=== PATIENT | female | born 1945 | race Caucasian/White ===

== ENCOUNTER 2024-07-03 08:33 | Observation (INO) ==
--- NOTE | 2024-05-30 11:37 | PAT Medication Instructions ---
Medication Instructions Date of Service May 30, 2024 Home Medications acetaminophen 500 mg tablet 500 mg PO Q6H PRN Pain ascorbic acid (vitamin C) 1,000 mg tablet (Vitamin C) 1 g PO DAILY calcium 600 mg capsule 600 mg PO DAILY cholecalciferol (vitamin D3) 125 mcg (5,000 unit) tablet (Vitamin D3) 125 mcg PO DAILY lactobacillus combination no.4 3 billion cell capsule (Probiotic) 3,000 mmu cells PO DAILY levothyroxine 25 mcg tablet 25 mcg PO QAM bxistibh-ohw-fgonn ac 400 mcg-calcium carb 500 mg-vit K1 20 mcg tablet (Women's 50 Plus Multivitamin) 1 tab PO DAILY omega-3 fatty acids-vitamin E 1,000 mg capsule 1 cap PO DAILY potassium 99 mg tablet 99 mg PO UD vitamin B complex 1 tab PO DAILY ibuprofen 400 mg tablet 600 mg PO BID magnesium 1 tab PO DAILY polyethylene glycol 3350 17 gram/dose oral powder (Miralax) 17 g PO DAILY prednisolone sodium phosphate 1 % eye drops 1 drp ophthalmic (eye) QAM ASK your surgeon for instructions ibuprofen 400 mg tablet 600 mg PO BID STOP taking 2 weeks before surgery (or as soon as possible if surgery is within 2 weeks) omega-3 fatty acids-vitamin E 1,000 mg capsule 1 cap PO DAILY DO NOT take the morning of surgery ascorbic acid (vitamin C) 1,000 mg tablet (Vitamin C) 1 g PO DAILY calcium 600 mg capsule 600 mg PO DAILY cholecalciferol (vitamin D3) 125 mcg (5,000 unit) tablet (Vitamin D3) 125 mcg PO DAILY lactobacillus combination no.4 3 billion cell capsule (Probiotic) 3,000 mmu cells PO DAILY cjqkjswa-mvh-ibkdu ac 400 mcg-calcium carb 500 mg-vit K1 20 mcg tablet (Women's 50 Plus Multivitamin) 1 tab PO DAILY potassium 99 mg tablet 99 mg PO UD vitamin B complex 1 tab PO DAILY magnesium 1 tab PO DAILY polyethylene glycol 3350 17 gram/dose oral powder (Miralax) 17 g PO DAILY Take morning of surgery With a small sip of water, OTHERWISE NOTHING TO EAT OR DRINK AFTER MIDNIGHT: acetaminophen 500 mg tablet 500 mg PO Q6H PRN Pain (if needed) levothyroxine 25 mcg tablet 25 mcg PO QAM prednisolone sodium phosphate 1 % eye drops 1 drp ophthalmic (eye) QAM Take evening before surgery acetaminophen 500 mg tablet 500 mg PO Q6H PRN Pain (if needed) Other Notes If you have any questions please call us at [phone] or [phone] or [phone] or [phone]
--- NOTE | 2024-06-07 15:28 | Anesthesiology Consultation ---
Date of Service June 07, 2024 Assessment & Plan (1) Encounter for pre-operative examination: Chart Review Chart Review: Acceptable Risk for Surgery (pending review of most recent heme note if available ) and Patient seen in Pre Admission Testing - Please try to get last office note from [facility] ([place]) - Patient is NOT an ideal OPJ candidate (currently 23 hour obs) Per PAT appt on 06/07/24, no recent illness/disease exposures, illness related symptoms, or recent illness/disease positive tests. Will leave to surgeon's discretion if preop Covid testing needed Teaching & Discussion Pre-Anesthesia Teaching/Discussion Notes: Instructed NPO after midnight before surgery,except medications with 15 cc of water. Medication instructions pro vided according to the PAT guidelines. History Surgery Operation Date: 07/03/24 12:15 Proposed Procedures p Right Total Knee Arthroplasty - Juan J Holliday DO Height/Weight Height: 5 ft Weight: 76.9 kg Allergies Allergy/AdvReac Type Severity Reaction Status Date / Time No Known Allergies Allergy Verified 05/26/24 14:23 Medications Home Medications Medication Instructions Recorded Confirmed Last Taken acetaminophen 500 mg tablet 500 mg PO Q6H PRN Pain 08/11/23 05/26/24 Unknown ascorbic acid (vitamin C) 1,000 mg 1 g PO DAILY 08/11/23 05/26/24 08/13/23 tablet (Vitamin C) calcium 600 mg capsule 600 mg PO DAILY 08/11/23 05/26/24 08/13/23 cholecalciferol (vitamin D3) 125 125 mcg PO DAILY 08/11/23 05/26/24 08/13/23 mcg (5,000 unit) tablet (Vitamin D3) lactobacillus combination no.4 3 3,000 mmu cells PO DAILY 08/11/23 05/26/24 08/13/23 billion cell capsule (Probiotic) levothyroxine 25 mcg tablet 25 mcg PO QAM 08/11/23 05/26/24 08/14/23 fjtgkrhh-qqn-wsogx ac 400 1 tab PO DAILY 08/11/23 05/26/24 08/13/23 mcg-calcium carb 500 mg-vit K1 20 mcg tablet (Women's 50 Plus Multivitamin) omega-3 fatty acids-vitamin E 1 cap PO DAILY 08/11/23 05/26/24 08/13/23 1,000 mg capsule potassium 99 mg tablet 99 mg PO UD 08/11/23 05/26/24 08/13/23 vitamin B complex 1 tab PO DAILY 08/11/23 05/26/24 08/13/23 ibuprofen 400 mg tablet 600 mg PO BID 05/26/24 05/26/24 Unknown magnesium 1 tab PO DAILY 05/26/24 05/26/24 Unknown polyethylene glycol 3350 17 17 g PO DAILY 05/26/24 05/26/24 Unknown gram/dose oral powder (Miralax) prednisolone sodium phosphate 1 % 1 drp ophthalmic (eye) QAM 05/26/24 05/26/24 Unknown eye drops tramadol 50 mg tablet 50 mg PO Q8H PRN pain #30 tabs 06/07/24 06/07/24 Unknown Past Medical History Medical History Abnormal blood level of iron - states has been "elevated" x 1-2 yrs; was never given a specific diagnosis- monitoring w/ Hematology at [facility] - has stopped taking iron supplement- follows with labs q 6 months - no recent issues (iron improving per patient) History of myocardial infarction - incidentally found on EKG in early - followed with cardiology in the past- had stress testing - no issues - no longer follows with cardio Hypothyroidism Osteoarthritis right hip and right knee Exercise / Class Metabolic Activity III < 4 Walking/Shop/Light housework (no chest pain or SOB for flat surface ambulation - uses cane for ambulation ) Past Surgical History Surgical History History of appendectomy History of cataract surgery bilateral History of cholecystectomy History of colonoscopy History of cornea transplant 08/2023 History of tonsillectomy History of tubal ligation Past Anesthesia History No Hx of Anesthesia Complications and No Family Hx of Anesthesia Complications History of PONV No Hx of PONV and No Hx of Motion Sickness Social History Smoking Status: Never smoker Do You Dip or Chew Tobacco: No Hx Alcohol Use: No Hx Substance Use: No substance use type: does not use Review of Systems - Hx of snoring- no hx of sleep study Patient denies chest pain, shortness of breath, dyspnea on exertion, reflux, cough, wheezing, palpitations. No hx of seizures, stroke. No hx of blood clots or blood transfusions Physical Exam Vital Signs VITALS BP 118/58 (manually) P 80 TEMP 98.2 SP02 99% RESP 16 Constitutional no acute distress ENMT Mouth: + small oral opening ((difficult to open mouth wide due to injury- jaw can lock at times)); no TMJ clicking Thyromental Distance: > or= 3.5 Finger Breadths (3.5) Mallampati Class: III Caps to side teeth Neck + limited neck extension Respiratory normal respiratory effort; no respiratory distress Auscultation: lungs clear to auscultation bilaterally; no wheezes Cardiovascular Rate/Rhythm: regular rate and regular rhythm Heart Sounds: no murmur Vessels: no carotid bruit Musculoskeletal Spine: no pain with cervical ROM Extremities: extremities normal to inspection Psychiatric Orientation: alert Lab Results Anesthesia Preop Results Results Anesthesia Widget: WBC 5.34 K/ul (4.8-10.8) 06/07/24 Hgb 14.3 g/dl (12.0-16.0) 06/07/24 Hct 42.5 % (37.0-47.0) 06/07/24 Plt 188 K/uL (130-400) 06/07/24 Na 142 mmol/L (136-145) 06/07/24 K 3.9 mmol/L (3.5-5.1) 06/07/24 Cl 104 mmol/L (98-107) 06/07/24 CO2 33 mmol/L (21-32) H 06/07/24 BUN 15 mg/dl (6-23) 06/07/24 Creat 0.79 mg/dl (0.6-1.2) 06/07/24 Glucose Level 142 mg/dl (70-99(Fasting)) H 06/07/24 PT 11.3 Seconds (9.0-12.0) 06/07/24 PTT 24 Seconds (21-31) 06/07/24 INR 1.0 (0.9-1.1) 06/07/24 Blood Type B Positive 06/07/24 Antibody Screen NEGATIVE 06/07/24 Testing Electrocardiogram Date: 06/07/24 Findings: + NSR @ (76bpm) Normal EKG per cardio Chest X-Ray Date: 06/07/24 Findings: + NAD
[~2024-07-03 08:33] MED LIST: ROPIVACAINE 0.5% 5 MG/ML 30 ML VIAL ONE
[2024-07-03] MEDS ORDERED: MIDAZOLAM HCL 1 MG/ML 2ML VIAL ONE (09:49)
[2024-07-03] MEDS ORDERED: fentaNYL citrate PF 100 MCG/2 ML VIAL ONE (09:49)
[2024-07-03] MEDS ORDERED: PROPOFOL IV EMULSION 10 MG/ML 20 ML VIAL IV ONE (09:49)
[2024-07-03] MEDS ORDERED: ONDANSETRON INJ 2 MG/ML 2 ML VIAL ONE (10:00)
[2024-07-03] MEDS ORDERED: DEXAMETHASONE SOD INJ 4 MG/ML VIAL ONE (10:00)
[2024-07-03] MEDS: LR 500ML BOLUS, THEN 15ML/HR IV SCH (10:02)
[2024-07-03] MEDS: LR 60ML/HR IV SCH (10:02)
[2024-07-03] MEDS: dexAMETHasone**PF** 10 MG/ML VIAL IV SCH (10:03)
[2024-07-03] MEDS: FAMOTIDINE 20 MG TAB PO SCH (10:03)
[2024-07-03] MEDS: GABAPENTIN 300 MG CAP PO SCH (10:03)
[2024-07-03] MEDS: ACETAMINOPHEN 500 MG TAB ONE (10:06)
--- NOTE | 2024-07-03 11:11 | History & Physical Bridge Note ---
Date of Service July 03, 2024 History & Physical Bridge Note I have examined the patient, reviewed the History & Physical and in the interval since the performance of the History & Physical I have noted the following changes of clinical significance: no changes noted
[2024-07-03] MEDS ORDERED: fentaNYL citrate PF 100 MCG/2 ML VIAL IV PRN (11:21)
[2024-07-03] MEDS ORDERED: ePHEDrine sulfate 50 MG/ML AMP IV PRN (11:21)
[2024-07-03] MEDS ORDERED: ONDANSETRON INJ 2 MG/ML 2 ML VIAL IV PRN ×2 (11:21→16:00)
[2024-07-03] MEDS ORDERED: ATROPINE SULFATE 0.1 MG/ML 10ML SYR IV PRN (11:21)
[2024-07-03] MEDS ORDERED: HYDROmorphone INJ 1 MG/ML SYRINGE IV PRN (11:21)
[2024-07-03] MEDS: TRANEXAMIC ACID 1,000 MG **IV Pre-op IV SCH (11:29)
[2024-07-03] MEDS: ceFAZolin 2000MG 2,000 MG/15 ML SYR IV SCH ×2 (11:45→17:36)
[2024-07-03] MEDS: ORTHO JOINT ANESTHETIC ONE (12:05)
[2024-07-03] MEDS ORDERED: PHENYLEPHRINE 100MCG/ML 5ML SYR ONE (12:05)
[2024-07-03] MEDS: ROPIV 0.5% 246mg, Ketorolac 30mg, EPINEPHrine 0.5mg in NSS INFIL SCH (12:05)
[2024-07-03] MEDS: TRANEXAMIC ACID 1,000 MG **IV Intra-op IV SCH (12:29)
--- NOTE | 2024-07-03 12:37 | Operative Report ---
PG Post Operative Report Pre & Post Diagnosis Operation Date: 07/03/24 11:00 Pre-Op Diagnosis: Osteoarthritis of Right Knee Post-Op Diagnosis: Osteoarthritis of Right Knee I identified the patient and participated in the time-out.: Yes Procedure Operation Date: 07/03/24 11:00 Actual Procedures p Right Total Knee Arthroplasty(Right) - Juan J Holliday DO Surgeon Juan J Holliday DO District Court Reporter Benji Tavera PA-C Estimated Blood Loss 50 Findings Consistent with Post-Op Diagnosis Specimens Right femoral and tibial bone Description of Procedure Implants used: I used a Maria [employer] Persona total knee arthroplasty system with a size 5 standard femur, C tibia, 31 oval patella, and a size 12 medial congruent polyethylene bearing. All components were cemented in place with Biomet cement. Greta arrived [facility] for the above procedure. She was seen in the preoperative holding area and the operative extremity was identified and signed. She was given a preoperative antibiotic, TXA, a spinal anesthetic and an adductor nerve block. She was taken back to the operating room and laid on the table in supine position. She was given basic sedation. The operative knee was then prepped and draped in sterile fashion. A timeout was done, and the patient and the operative extremity was properly identified. A midline incision was made directly over the patella. Dissection was taken down to the extensor mechanism. A medial parapatellar arthrotomy was used. The medial retinaculum was released and the fat pad was mostly excised. The knee was flexed and the ACL, PCL, and meniscus were removed. A drill was sent down the center of the femoral canal followed by an intramedull esperanza melissa. Off that melissa a distal femoral cutting block was placed. 9 mm was resected off the distal femur at 5 of valgus. A posterior referencing AP sizing guide was then placed on the distal femur. The femur measured to be a size 5. 2 drill holes were placed in 3 of external rotation. A 4-in-1 cutting block was then impacted into place. Anterior, posterior, and chamfer cuts were then made. The proximal tibia was then exposed. An external tibial alignment guide was placed. A tibial cut guide was then anchored in place and the proximal tibia was then resected. The posterior aspect of the knee was then opened up and any additional meniscus fragments and osteophytes were removed. The tibia measured to be a size C. The tibial plate was then placed in the appropriate rotation and the tibia was drilled and punched. Trial components were then placed. I used a size 12 medial congruent polyethylene insert. The knee was brought through a full range of motion and felt to be stable. The peg holes for the femoral component were then drilled. The patella was then everted and 9 mm was resected off the posterior aspect of the patella. The patella measured to be a size 31 oval. 3 peg holes were then drilled. A trial patella was placed. The knee was once again brought through a full range of motion and felt to be stable. Trial components were then removed. The surrounding soft tissues were injected with 100 cc of an orthopedic pain control cocktail. All components were then cemented into place with Biomet cement. The final polyethylene insert was then snapped into place. Once cement was dry the tourniquet was deflated. Hemostasis was obtained. A dilute betadyne lavage was then done for 3 minutes. The joint was then irrigated with normal saline solution. The medial parapatellar arthrotomy was then closed with #1 Vicryl suture. The skin was closed with 2-0 Vicryl, 3-0V lock suture, and rajeev. A soft compressive dressing was placed. She was then transferred to a hospital bed and taken to the postanesthesia care unit in stable condition. She tolerated the procedure well. Benji Tavera PA-C, was present for the entire procedure. He was critical for patient positioning, prepping, draping, retraction exposure, wound closure and application of sterile dressing. I attest to the content of the Intraoperative Record and any orders documented therein. Any exceptions are noted below.
--- NOTE | 2024-07-03 13:24 | XRay Report ---
XR knee RT 1 or 2V routine CLINICAL HISTORY: Surgical Post Op COMPARISON: None FINDINGS: Right knee prosthesis shows no hardware complication. There is expected soft tissue gas. S kin rajeev are present. IMPRESSION: Unremarkable postoperative exam. ACT 112: Negative or not required by law. Electronically signed by: Lee Perdue M.D. 07/03/2024 1:22 PM
--- NOTE | 2024-07-03 13:27 | Anesthesiology Progress Note ---
Date of Service July 03, 2024 Anesthesia Post Procedure Vital Signs Vital Signs: Temp Pulse Pulse Resp BP Pulse Ox O2 Del Method 07/03/24 13:20 85 18 113/59 L 96 Room Air 07/03/24 13:10 87 22 122/57 L 99 Oxymask 07/03/24 13:04 36.2 C L 91 H 20 103/67 93 Oxymask 07/03/24 09:35 36.9 C 80 18 159/53 H 99 Room Air O2 Flow Rate 07/03/24 13:20 07/03/24 13:10 6 07/03/24 13:04 6 07/03/24 09:35 Pain Intensity Right Knee: Pain Intensity: 7 Transfer of Care Handoff Completed per policy Notes Mental Status: alert / awake / arousable and participated in evaluation Patient Amnestic to Procedure: Yes Nausea / Vomiting: adequately controlled Pain: adequately controlled Airway Patency, RR, SpO2: stable & adequate BP & HR: stable & adequate Hydration State: stable & adequate Anesthetic Complications: no major complications apparent and Pt Satisfied with anesthetic care
[2024-07-03] MEDS: ACETAMINOPHEN 500 MG TAB PO ONE (15:58)
[2024-07-03] MEDS ORDERED: METOCLOPRAMIDE HCL INJ 5 MG/ML 2 ML VIAL IV PRN (16:00)
[2024-07-03] MEDS ORDERED: bisacodyL 10 MG SUPP PR PRN (16:00)
[2024-07-03] MEDS ORDERED: oxyCODONE HCL IR 5 MG TAB (IMMEDIATE RELEASE) PO PRN (16:00)
[2024-07-03] MEDS ORDERED: NALOXONE HCL 0.4 MG/1 ML VIAL/CARP IV PRN (16:00)
[2024-07-03] MEDS ORDERED: MAGNESIUM HYDROXIDE SUSP 30 ML UDC PO PRN (16:00)
[2024-07-03] MEDS ORDERED: HYDROmorphone INJ 0.5 MG/0.5 ML SYR IV PRN (16:00)
[2024-07-03] MEDS: KETOROLAC TROMETHAMINE 15 MG/ML VIAL IV SCH (17:36)
[2024-07-03] MEDS ORDERED: ACETAMINOPHEN 500 MG TAB PO PRN (19:14)
[2024-07-03] MEDS: ASPIRIN 81 MG ECTAB PO SCH (20:08)
[2024-07-03] MEDS: SENNA 8.6 MG TAB PO SCH (20:08)
[2024-07-03] MEDS: DOCUSATE SODIUM 100 MG CAP PO SCH (20:08)
[2024-07-04 03:31] VITALS: O2SAT 99
[2024-07-04] MEDS: LEVOTHYROXINE SODIUM 25 MCG TABLET PO SCH (05:35)
[2024-07-04 08:11] VITALS: BP 124/61; PULSE 78; RESP 17; TEMP 97.5
[2024-07-04] MEDS: dexAMETHasone 4 MG TAB PO SCH (08:20)
[2024-07-04] MEDS: POLYETHYLENE (MIRALAX) 17 GM PACK PO SCH (08:20)
[2024-07-04] MEDS: MULTIVITAMIN TAB PO SCH (08:20)
[2024-07-04] MEDS: prednisoLONE sod phos 1% 10 ML BTL OP SCH (08:21)
--- NOTE | 2024-07-04 09:11 | Orthopedic Progress Note ---
Date of Service July 04, 2024 Assessment & Plan (1) Status post right knee replacement: (2) Aftercare following right knee joint replacement surgery: Plan 78-year-old woman POD# 1 s/p right total knee replacement, doing well overall. Pain is relatively well-controlled. Medically stable. Postop x-rays well- appearing. She is neurologically intact. Patient is struggling a bit with straight leg raise, but otherwise doing well. Plan: 1. DVT prophylaxis w/ TEDs, SCDs, ASA 81 mg BID. 2. PT/OT as tolerated. WBAT on the R LE. Encourage heel slides, SLR, full knee extension w/ quad sets. 3. Pain control doing well with current pain regimen. 4. Dressing change by nursing after PT/OT, prior to discharge. Do not get dressing wet for 5 days. 5. Disposition - plan to D/C home w/ [facility] later today once cleared by PT/OT. 6. F/u 2 weeks post-op w/ orthopedics ([Dr. Holliday's team), or as previously scheduled, for first post-op visit. Subjective Patient is POD# 1 s/p right total knee arthroplasty by Dr. Holliday on 07/03/2024. Patient says her pain is relatively well-controlled this morning. Denies CP, SOB, N/V, R LE paresthesia. She has been working with case management on getting home health care arranged. She says she is able to do all of the exercises on her sheet, except for the straight leg raise. Review of Systems All systems reviewed & are unremarkable except as noted in HPI & below. Physical Exam GENERAL: AA&Ox3, NAD. Pleasant, affect is calm. Sitting upright in bed and appears comfortable. RESPIRATORY: Normal respiratory effort with no signs of distress. CHEST/AXILLA: Chest movement symmetrical. No deformities noted. CARDIOVASCULAR: No edema noted. SKIN: [place], warm and dry. MS/EXTREMITY: Knee dressing & GUEVARA wrap c/d/i. RHETT hose donned to contralateral LE. + ankle dorsi/plantarflexion. NVI distally. Calf soft/NT. PT/DP pulses intact, 2+. Unable to SLR on her own. Results & Data Results & Data Laboratory Results . Diagnostic Findings . Knee X-Ray 07/03/24 12:40 XR knee RT 1 or 2V routine CLINICAL HISTORY: Surgical Post Op COMPARISON: None FINDINGS: Right knee prosthesis shows no hardware complication. There is expected soft tissue gas. Skin rajeev are present. IMPRESSION: Unremarkable postoperative exam. ACT 112: Negative or not required by law. Electronically signed by: Lee Perdue M.D. 07/03/2024 1:22 PM PG Care Time/CCT Total # of Minutes Spent Total Time Spent with Patient: Total time spent is greater than 50% in coordination of care (as documented) at patient's floor/unit and/or counseling patient: [place] [address] Post Operative Follow-Up Patient Type Established History Problem Focused Exam Problem Focused Medical Decision Making Straight Forward Diagnoses Status post right knee replacement Z96.651 Aftercare following right knee joint replacement surgery Z47.1; Z96.651
--- NOTE | 2024-07-04 15:24 | Discharge Summary ---
Date of Service July 04, 2024 Admission HPI (Per Admitting) Greta is a pleasant 78-year-old female who has been dealing with chronic increasing right knee pain. X-rays and clinical exam have been diagnostic for advanced arthritis of the right knee. After failing conservative treatment, she presents to the office today to discuss knee replacement surgery. We discussed diagnosis and treatment options in the office today. She would like to proceed with a right total knee arthroplasty. I went over medical history with her in detail. She is not a diabetic. She is not on any anticoagulants and has no history of blood clots. She has a walker at home. I think it is reasonable to proceed with a right total knee arthroplasty. Her daughter is with her in the room today. We discussed the risks and benefits of the procedure and she is electing to proceed. The decision was made to proceed with surgery. I will see her back in the office postoperatively. Admission Exam (Per Admitting) Appearance: This is a well-developed, well-nourished female in no apparent distress.Musculoskeletal: Physical exam of the right knee shows good motion from 0 to 120 degrees. No instability. Pain over the distal medial femoral c ondyle and over the medial joint line. Principal Diagnosis Same as "Discharge Diagnosis" noted below under Discharge Instructions. Discharge Exam GENERAL: AA&Ox3, NAD. Pleasant, affect is calm. Sitting upright in bed and appears comfortable. RESPIRATORY: Normal respiratory effort with no signs of distress. CHEST/AXILLA: Chest movement symmetrical. No deformities noted. CARDIOVASCULAR: No edema noted. SKIN: [place], warm and dry. MS/EXTREMITY: Knee dressing & GUEVARA wrap c/d/i. RHETT hose donned to contralateral LE. + ankle dorsi/plantarflexion. NVI distally. Calf soft/NT. PT/DP pulses intact, 2+. Unable to SLR on her own. Discharge Data Procedures Performed Operation Date: 07/03/24 11:00 Actual Procedures p Right Total Knee Arthroplasty(Right) - Juan J Holliday DO Ordered Studies 07/03/24 05:00 US - OR guided needle placemen Routine Hospital Course (1) Status post right knee replacement: (2) Aftercare following right knee joint replacement surgery: Plan On July 03, 2024 Greta arrived at [facility] operating room and underwent a right total knee replacement without complications. Patient had an adductor canal block and spinal anesthetic for the procedure. Postoperatively, patient was transferred to the general orthopedic floor in stable condition and eventually started onto aspirin 81 mg twice daily for DVT prophylaxis as appropriate. Patient's hospital course was uneventful. On postoperative day #1, patient's vital signs were stable and pain was well- controlled. Patient was able to participate well with physical therapy, safely performing the necessary ambulation and range of motion exercises and properly demonstrating ADL tasks. Patient was then discharged home in stable condition, with home health care services to begin. Patient will follow-up with orthopedics in 2 to 3 weeks for postoperative care. PG Care Time/CCT Total # of Minutes Spent Total Time Spent with Patient: Total time spent is greater than 50% in coordination of care (as documented) at patient's floor/unit and/or counseling patient: Discharge Plan Discharge Items Patient Disposition: Home - Home Health Services Reason For Visit: Arthritis Knee Right Discharge Diagnosis: Status post right knee replacement Activity: Per Instructions section Non-emergency contact: Surgeon Call non-emergency contact if: your pain is worsening, your temperature is above 101, your wound has increased redness and your wound has increased drainage Follow-up/Referrals: Samson Panchal PA-C [Physician Waste Handling Technician] - (as scheduled on 07/19/24 @ 13:30) PCP,SAMANTA [Primary Care Provider] - Diet: Regular Addtl Attending Provider Instructions: Activity and Therapy Recommendations: * If you are using [facility] then therapy will be provided at your home until they feel you have accomplished all of your goals. * If you are using [facility] then Physical Therapy will be provided until they feel you are ready to start Outpatient Physical Therapy. * If you are not using home therapy then Outpatient Physical Therapy should start about 3-5 days from your day of surgery. Therapy will last about 6-10 weeks * It is important not to put a pillow under your knee when you are relaxing or sleeping. It is just as important to make sure you are getting your knee perfectly straight as it is to regain your knee bend. * You were shown a series of exercises in the hospital. Do these exercises three times each day including the exercises you were shown in physical therapy. * Get up and walk several times each day. For the first four weeks, try not to stand or walk for more than one hour at a time. If you do stand or walk for more than one hour, you will not hurt anything, but your leg will likely swell. * As you feel comfortable, you may change from the walker or crutches to a cane and then to independent walking. Medications: * Narcotic You will likely be sent home from the hospital with a prescription for the narcotic pain medication that worked best throughout your stay. * Cefadroxil -take the antibiotic twice a day for 10 days to help prevent infection. * Aspirin Most patients will be required to take Aspirin 81mg twice a day for 6 weeks after surgery. This is obtained bual-yer-ejfikps and a prescription is not necessary. * Other medications may be prescribed for specific circumstances. If you have any questions, please call the office at . * Resume previous home medications unless otherwise instructed TEDs/Elastic Stockings: The white elastic stockings help limit swelling and prevent blood clots from forming in your legs.~ The more you wear them, the more they work. Wear them for 2 weeks. Dressing Care: The dressing can be changed after physical therapy on postop day #1. Daily dry dressing changes for a few days, especially if the incision is still draining some. If the incision is not draining then you may leave the rajeev open to air. If there is a little bit of drainage or if the rajeev are getting stuck on your clothing then cover the incision with a dry dressing. The rajeev will be removed at your 2 week follow-up appointment. Showering: You may shower 5 days from the day of surgery as long as the incision is no longer draining. You may shower with the rajeev exposed. Let soapy water run over the rajeev and pat them dry. Do not scrub or soak the incision. Diet: You may resume your previous diet. Things To Watch For: * Drainage from the incision site that occurs more than one week after your surgery. * Increased redness at the incision site. * Fever above 102 degrees Fahrenheit. * Unusual chest pain or shortness of breath. * Call [facility] at with any of the above problems Follow-Up Visit: Follow-up with Dr. Holliday's office 2-3 weeks after your day of surgery. We will remove your rajeev and answer any questions. If you have any additional questions or concerns, Dr Holliday is usually in the office at the same time and will be available An appointment was probably scheduled when you signed-up for surgery in the office. If you have any questions call Office Instructions: More detailed instructions as well as Frequently Asked Questions were provided in a folder by our office when you signed-up for surgery. Please review these instructions when you get home. If you have any further questions or concerns, please feel free to call the office at [phone] Pending Studies at Discharge: No Stand-Alone Forms: My [facility], Smoking Cessation Medications and DC Order Prescriptions: New aspirin [Adult Aspirin Regimen] 81 mg tablet,delayed release (DR/EC) 81 mg PO BID Qty: 84 0RF cefadroxil 500 mg capsule 500 mg PO BID 10 Days Qty: 20 0RF oxycodone 5 mg tablet 5 mg PO Q6H PRN (Reason: pain) Qty: 30 0RF Continued tramadol 50 mg tablet 50 mg PO Q8H PRN (Reason: pain) Qty: 30 0RF calcium 600 mg Capsule 600 mg PO DAILY ascorbic acid (vitamin C) [Vitamin C] 1,000 mg Tablet 1 g PO DAILY acetaminophen 500 mg Tablet 500 mg PO Q6H PRN (Reason: Pain) levothyroxine 25 mcg Tablet 25 mcg PO QAM potassium 99 mg Tablet 99 mg PO UD Patient Comments: four days per week vitamin B complex Tablet 1 tab PO DAILY omega-3 fatty acids-vitamin E 1,000 mg Capsule 1 cap PO DAILY cholecalciferol (vitamin D3) [Vitamin D3] 125 mcg (5,000 unit) Tablet 125 mcg PO DAILY Women's 50 Plus Multivitamin 400 mcg-500 mg calcium-20 mcg Tablet 1 tab PO DAILY Probiotic 3 billion cell Capsule 3,000 mmu cells PO DAILY Rx Instructions: administer with a meal prednisolone sodium phosphate 1 % Drops 1 drp OPHTHALMIC (EYE) QAM polyethylene glycol 3350 [Miralax] 17 gram/dose Powder 17 g PO DAILY magnesium 1 tab PO DAILY ibuprofen 400 mg Tablet 600 mg PO BID Krames/Other Patient Handouts: Knee Replacement Total Dc Admission Data Admit Date/Time: 07/03/24 12:40 Attending Provider: Juan J Holliday Admit Provider: Juan J Holliday Primary Care Provider: PCP,NO Other Providers: Danny Giles [facility] Other Interventions: Discharge Summary Assessment (RN) Last Done: 07/04/24 10:25
== END 2024-07-04 11:33 | disposition home health service (06) ==
LOC: PACUINP 08:33 → ASU 08:33 → 3W 15:31